=== PATIENT | male | born 1990 | race American Indian/Alaskan Native ===

== ENCOUNTER 2018-09-01 21:59 | Emergency (ER) | payer MEDICAID ==
--- NOTE | 2018-09-01 22:26 | C.PDOC ---
History Of Present Illness 28 year old male with Hx of HTN and Hx of renal failure no longer on hemodialysis presents with leg pain and body aches for the past 2 days, associated with abdominal discomfort and lightheadedness. Patient reports a week ago having flu like illness with nasal congestion, cough productive of sputum, and fever; all symptoms have resolved except for a mild cough. Patient states the body aches are similar to when he was diagnosed with rhabdomyolysis in 10/2016 and had to be put on hemodialysis for renal failure. His PMD is Dr. Gonzalez who he last saw 4 months ago. He reports good compliance with his HTN medications. Surgical Hx includes a dialysis line that was discontinued. Admits to cigarette use, denies ETOH or drug use. Family Hx of HTN. <Celine Madison - Last Filed: 09/03/18 15:16> <Payal Romano - Last Filed: 09/02/18 01:45> History Per: Patient History/Exam Limitations: no limitations Onset/Duration Of Symptoms: Days Current Symptoms Are (Timing): Still Present Quality Of Discomfort: Unable To Describe Associated Symptoms: Other (lightheadedness, abdominal discomfort, body aches, leg pain) Exacerbating Factors: None Alleviating Factors: None Recent travel outside of the [place]: No <Celine Madison - Last Filed: 09/03/18 15:16> Time Seen by Provider: 09/01/18 22:10 Chief Complaint (Nursing): Abdominal Pain Past Medical History Vital Signs: Last Vital Signs Temp 99.0 F 09/02/18 01:10 Pulse 88 09/02/18 01:10 Resp 16 09/02/18 01:10 BP 119/75 09/02/18 01:10 Pulse Ox 98 09/02/18 01:10 - [facility] Procedures EXCISION OF RIGHT LOWER LEG MUSCLE, OPEN APPROACH, DIAGN (11/14/16) FLUOROSCOPY OF RIGHT JUGULAR VEINS, GUIDANCE (11/14/16) INSERT INFUSION DEV IN R INT JUGULAR VEIN, PERC (11/14/16) PERFORMANCE OF URINARY FILTRATION, MULTIPLE (11/14/16) ULTRASONOGRAPHY OF RIGHT JUGULAR VEINS, GUIDANCE (11/14/16) <Payal Romano - Last Filed: 09/02/18 01:45> Reviewed: Historical Data, Nursing Documentation, Vital Signs Vital Signs: Last Vital Signs Temp 98.1 F 09/01/18 22:03 Pulse 63 09/01/18 22:03 Resp 16 09/01/18 22:03 BP 183/121 H 09/01/18 22:03 Pulse Ox 98 09/01/18 22:03 - Medical History PMH: Anxiety, HTN Denies: HIV, Chronic Kidney Disease Surgical History: Cholecystectomy - [facility] Procedures EXCISION OF RIGHT LOWER LEG MUSCLE, OPEN APPROACH, DIAGN (11/14/16) FLUOROSCOPY OF RIGHT JUGULAR VEINS, GUIDANCE (11/14/16) INSERT INFUSION DEV IN R INT JUGULAR VEIN, PERC (11/14/16) PERFORMANCE OF URINARY FILTRATION, MULTIPLE (11/14/16) ULTRASONOGRAPHY OF RIGHT JUGULAR VEINS, GUIDANCE (11/14/16) Family History: States: No Known Family Hx - Social History Hx Alcohol Use: No Hx Substance Use: No <Celine Madison - Last Filed: 09/03/18 15:16> Review Of Systems Constitutional: Negative for: Fever, Chills Cardiovascular: Positive for: Light Headedness. Negative for: Chest Pain, Palpitations Respiratory: Positive for: Cough. Negative for: Shortness of Breath Gastrointestinal: Positive for: Abdominal Pain. Negative for: Nausea, Vomiting Genitourinary: Negative for: Dysuria, Hematuria Musculoskeletal: Positive for: Leg Pain, Other (Body aches) Neurological: Negative for: Weakness, Numbness <Celine Madison - Last Filed: 09/03/18 15:16> Physical Exam - Physical Exam Appears: Other (Mild painful distress) Skin: Warm, Diaphoretic Head: Normacephalic, Tenderness Eye(s): bilateral: PERRL, EOMI Oral Mucosa: Moist Lips: Normal Appearing Throat: No Erythema, No Exudate Neck: Normal ROM, Trachea Midline Lymphatic: No Adenopathy Chest: Symmetrical Cardiovascular: Rhythm Regular, No Murmur Respiratory: Normal Breath Sounds, No Rales, No Rhonchi, No Wheezing Gastrointestinal/Abdominal: Soft, Tenderness (diffuse), No Mass, No Distention, No Guarding, No Rebound Back: Normal Inspection, No Muscle Spasm Extremity: Normal ROM (x4), No Pedal Edema, No Deformity Neurological/Psych: Oriented x3, Normal Motor, Normal Sensation <Celine Madison - Last Filed: 09/03/18 15:16> ED Course And Treatment - Laboratory Results Result Diagrams: 09/01/18 22:29 09/01/18 22:29 Lab Results: pO2 23 mm/Hg (30-55) L 09/02/18 00:55 VBG pH 7.30 (7.32-7.43) L 09/02/18 00:55 VBG pCO2 53 mmHg (40-60) 09/02/18 00:55 VBG HCO3 22.3 mmol/L 09/02/18 00:55 VBG Total CO2 27.7 mmol/L (22-28) 09/02/18 00:55 VBG O2 Sat (Calc) 42.7 % (40-65) 09/02/18 00:55 VBG Base Excess -1.1 mmol/L (0.0-2.0) L 09/02/18 00:55 VBG Potassium 3.8 mmol/L (3.6-5.2) 09/02/18 00:55 Sodium 137.0 mmol/l (132-148) 09/02/18 00:55 Chloride 101.0 mmol/L (98-107) 09/02/18 00:55 Glucose 86 mg/dl (75-110) 09/02/18 00:55 Lactate 1.7 mmol/L (0.7-2.1) 09/02/18 00:55 PT 12.0 SECONDS (9.7-12.2) 09/01/18 22:29 INR 1.1 09/01/18 22:29 APTT 38 SECONDS (21-34) H 09/01/18 22:29 Troponin I 0.0180 ng/mL (0.00-0.120) 09/01/18 22:29 NT-Pro-B Natriuret Pep 23.2 pg/mL (0-450) 09/01/18 22:29 Total Bilirubin 1.0 mg/dL (0.2-1.3) 09/01/18 22:29 AST 31 U/L (17-59) 09/01/18 22:29 ALT 28 U/L (21-72) 09/01/18 22:29 Alkaline Phosphatase 104 U/L (38-126) 09/01/18 22:29 Total Protein 7.8 g/dL (6.3-8.3) 09/01/18 22:29 Albumin 4.7 g/dL (3.5-5.0) 09/01/18 22:29 Globulin 3.1 gm/dL (2.2-3.9) 09/01/18 22:29 Albumin/Globulin Ratio 1.5 (1.0-2.1) 09/01/18 22:29 Pulse Ox Interpretation: Normal Reevaluation Time: 01:45 Reassessment Condition: Improved <Payal Romano - Last Filed: 09/02/18 01:45> - Laboratory Results Result Diagrams: 09/01/18 22:29 09/01/18 22:29 O2 Sat by Pulse Oximetry: 98 <Celine Madison - Last Filed: 09/03/18 15:16> Medical Decision Making Medical Decision Making: Upon provider reevaluation patient is feeling better, is medically stable, and requires no further treatment in the ED at this time. Patient will be discharged home . Counseling was provided and all questions were answered regarding diagnosis and need for follow up with dr dior. There is agreement to discharge plan. Return if symptoms persist or worsen. <Payal Romano - Last Filed: 09/02/18 01:45> Medical Decision Making: Impression: Leg pains Differential diagnosis includes(but not limited to): Acute renal failure, rhabdomyolysis, flu like illness, viral syndrome, electrolyte abnormality, dehydration. 1am Endorsed to Dr Romano pending CT abd/pel, reassessment and final ER disposition <Celine Madison - Last Filed: 09/03/18 15:16> Disposition Counseled Patient/Family Regarding: Studies Performed, Diagnosis, Need For Followup - Disposition Disposition Time: 01:00 <Payal Romano - Last Filed: 09/02/18 01:45> <Celine Madison - Last Filed: 09/03/18 15:16> - Disposition Referrals: Earle Gonzalez MD [Medical Doctor] - Disposition: HOME/ ROUTINE Condition: FAIR Additional Instructions: Please return if symptoms recur Instructions: Viral Syndrome (DC) Forms: [facility] (Kyrgyz) - Clinical Impression Clinical Impression: Viral syndrome, Leg pain - Scribe Statement The provider has reviewed the documentation as recorded by the Scribe Octaviano Arriaga All medical record entries made by the Scribe were at my direction and personally dictated by me. I have reviewed the chart and agree that the record accurately reflects my personal performance of the history, physical exam, medical decision making, and the department course for this patient. I have also personally directed, reviewed, and agree with the discharge instructions and dis position. <Celine Madison - Last Filed: 09/03/18 15:16>
[2018-09-01 22:33] LABS: BASO # 0.1 K/uL (0.0-0.2); BASO % 0.8 % (0.0-2.0); MONO # 0.5 K/uL (0.0-0.8); NEUT # 6.3 K/uL (1.8-7.0); NRBC % 0.1 % (0.0-2.0)
[2018-09-01 22:37] LABS: EOS % 0.3 % (0.0-4.0); HEMOGLOBIN 14.7 g/dL (12.0-18.0); LYMPH # 2.1 K/uL (1.0-4.3); LYMPH % 23.1 % (20.0-40.0); MEAN CELL VOLUME 74.9 fL (80.0-94.0); MEAN CORPUSCULAR HEMOGLOBIN 23.6 pg (27.0-31.0); MEAN CORPUSCULAR HGB CONC 31.6 g/dL (33.0-37.0); MEAN PLATELET VOLUME 9.3 fL (7.2-11.7); MONO % 5.8 % (0.0-10.0); RBC 6.21 Mil/uL (4.40-5.90); RED CELL DISTRIBUTION WIDTH 15.7 % (11.5-14.5)
[2018-09-01 22:41] LABS: INR 1.1
[2018-09-01 22:44] LABS: VENOUS BLOOD GAS BASE EXCESS -0.3 mmol/L (0.0-2.0); VENOUS BLOOD GAS PCO2 59 mmHg (40-60); VENOUS BLOOD GAS PO2 18 mm/Hg (30-55); VENOUS BLOOD PH 7.28 (7.32-7.43)
[2018-09-01 22:45] LABS: ALB/GLOB RATIO 1.5 (1.0-2.1); ALBUMIN 4.7 g/dL (3.5-5.0); ALT/SGPT 28 U/L (21-72); AST/SGOT 31 U/L (17-59); BLOOD UREA NITROGEN 19 mg/dL (9-20); GFR NON-AFRICAN AMERICAN > 60
[2018-09-01] MEDS ORDERED: Iohexol 240 (50 ml) PO STA (22:54)
[2018-09-01] MEDS ORDERED: Sodium Chloride 0.9% 1,000 ML IV ONE (22:55)
[2018-09-01 22:56] LABS: B-TYPE NATRIURETIC PEPTIDE 23.2 pg/mL (0-450)
[2018-09-01] MEDS ORDERED: Iohexol 240 (50 ml) ONE (23:01)
[2018-09-01] MEDS ORDERED: Sodium Chloride 0.9% 1,000 ML ONE (23:01)
[2018-09-02] MEDS ORDERED: Iodixanol 320 MG/ML 100 ML BOTTLE IV ONE (00:07)
[2018-09-02 01:06] LABS: VENOUS BLOOD GAS BASE EXCESS -1.1 mmol/L (0.0-2.0); VENOUS BLOOD GAS PCO2 53 mmHg (40-60); VENOUS BLOOD GAS PO2 23 mm/Hg (30-55)
[2018-09-02 01:10] VITALS: RESP 16; O2SAT 98
[2018-09-02 02:52] VITALS: BP 119/75; PULSE 88; TEMP 99
--- NOTE | 2018-09-02 07:35 | CT ---
Date of service: 09/02/2018 PROCEDURE: CT Abdomen and Pelvis with contrast HISTORY: Generalized abdominal pain COMPARISON: None. TECHNIQUE: Contrast dose: 100 mL of Visipaque 320 intravenously. Oral contrast was also given. Axial and reformatted coronal and sagittal CT images of the abdomen and pelvis were obtained after IV and oral contrast administration. Radiation dose: Total exam DLP = 2893.44 mGy-cm. This CT exam was performed using one or more of the following dose reduction techniques: Automated exposure control, adjustment of the mA and/or kV according to patient size, and/or use of iterative reconstruction technique. FINDINGS: LOWER THORAX: There is 5 millimeter noncalcified nodule in the right middle lobe image 1 seen. LIVER: Mild heterogeneous enhancement of the liver is noted without evidence of discrete mass. The portal vein is patent. GALLBLADDER AND BILE DUCTS: Patient status post prior cholecystectomy. No evidence of intrahepatic or extrahepatic biliary ductal dilatation. PANCREAS: Unremarkable. No gross lesion or ductal dilatation. SPLEEN: Unremarkable. ADRENALS: Unremarkable. No mass. KIDNEYS AND URETERS: Unremarkable. No hydronephrosis. No solid mass. VASCULATURE: Unremarkable. No aortic aneurysm. No aortic atherosclerotic calcification or mural plaque present. BOWEL: Suspicious for large bowel wall thickening. The possibility of colitis cannot be excluded. No evidence of high-grade bowel obstruction. APPENDIX: Normal appendix. PERITONEUM: Unremarkable. No free fluid. No free air. LYMPH NODES: Unremarkable. No enlarged lymph nodes. BLADDER: Unremarkable. REPRODUCTIVE: Unremarkable. BONES: No acute fracture. OTHER FINDINGS: None. IMPRESSION: 5 millimeter noncalcified nodule in the right middle lobe likely represent a sequela of prior infection or inflammatory process. If clinically warranted 12 months follow-up reassessment with CT of the chest is suggested. Suspicious for large bowel wall thickening. Correlate clinically for colitis. Otherwise no evidence of acute pathology in the abdomen and pelvis. Preliminary report was submitted by [facility] Radiology contains concordant findings.
--- NOTE | 2018-09-02 08:35 | RAD ---
Date of service: 09/01/2018 HISTORY: pain COMPARISON: No prior. FINDINGS: LUNGS: Small opacities at the lung bases likely atelectasis. PLEURA: No significant pleural effusion identified, no pneumothorax apparent. CARDIOVASCULAR: No aortic atherosclerotic calcification present. Normal cardiac size. No pulmonary vascular congestion. OSSEOUS STRUCTURES: No significant abnormalities. VISUALIZED UPPER ABDOMEN: Normal. OTHER FINDINGS: None. IMPRESSION: Suboptimal study due to patient's body habitus and portable technique. Small opacities at the lung bases likely atelectasis.
--- NOTE | 2018-09-03 21:59 | CARD ---
APPROVED REPORT Date of service: 09/01/2018 EKG Measurement Heart [id number] <Conclusion> Normal sinus rhythm Normal ECG
== END 2018-09-02 06:00 | disposition home or self-care (01) ==
LOC: C.ER 21:59
DX: B34.9 Viral infection, unspecified (principal); M79.606 Pain in leg, unspecified; I10 Essential (primary) hypertension; F17.210 Nicotine dependence, cigarettes, uncomplicated
CPT/HCPCS: 71045; 74177; 80053; 82550; 82803; 83735; 83880; 84100; 84484; 85025; 85610; 85730; 87040; 87804; 93005; 96374; 99284; J1885; J7030; Q9966; Q9967